=== PATIENT | female | born 1945 | race Caucasian/White ===

== ENCOUNTER 2019-09-13 10:19 | Day surgery (SDC) | payer MEDICARE, BC ==
[2019-09-09 16:07] LABS: BASOPHILS % (AUTO) 0.5 % (0-1); EOSINOPHILS # (AUTO) 0.2 X10'3 (0-0.9); EOSINOPHILS % (AUTO) 3.6 % (0-6); HEMATOCRIT 39.5 % (35.0-45.0); HEMOGLOBIN 13.4 g/dl (12.0-16.0); LYMPHOCYTES # (AUTO) 2.3 X10'3 (1.1-4.8); LYMPHOCYTES % (AUTO) 37.3 % (21-51); MEAN CORPUSCULAR HEMOGLOBIN 32.1 PG (27.0-31.0); MEAN CORPUSCULAR VOLUME 94.3 FL (78-98); MEAN PLATELET VOLUME 8.2 FL (7.4-10.4); MONOCYTES # (AUTO) 0.5 X10'3 (0-0.9); MONOCYTES % (AUTO) 8.7 % (2-12); NEUTROPHILS # (AUTO) 3.1 X10'3 (1.8-7.7); NEUTROPHILS % (AUTO) 49.9 % (42-75); PLATELET COUNT 208 X10'3 (140-440); RED BLOOD COUNT 4.19 X10'6 (4.20-5.60); RED CELL DISTRIBUTION WIDTH 13.5 % (11.5-14.5); WHITE BLOOD COUNT 6.2 X10'3 (4.5-11.0)
[2019-09-09 16:17] LABS: PARTIAL THROMBOPLASTIN TIME 26 SECONDS (22-32)
[2019-09-09 16:19] LABS: ALANINE AMINOTRANSFERASE 85 U/L (12-78); ALBUMIN/GLOBULIN RATIO 1.2 (1.1-1.5); ALKALINE PHOSPHATASE 68 IU/L (46-116); ANION GAP 5 (8-16); ASPARTATE AMINO TRANSFERASE 33 U/L (10-37); BILIRUBIN,TOTAL 0.6 MG/DL (0.1-1.0); BLOOD UREA NITROGEN 15 MG/DL (7-18); BUN/CREATININE RATIO 16.9 (6.6-38.0); CALCIUM 9.1 MG/DL (8.5-10.1); CHLORIDE 106 MMOL/L (99-107); CREATININE 0.89 MG/DL (0.40-0.90); GLUCOSE 98 MG/DL (70-104); POTASSIUM 3.8 MMOL/L (3.5-5.1); SODIUM 142 MMOL/L (135-145); TOTAL CARBON DIOXIDE 31.4 MMOL/L (24-32); TOTAL PROTEIN 7.4 G/DL (6.4-8.2); eGFR 62 ML/MIN
[2019-09-13] VITALS (13 sets, daily range): BP systolic 101–128; BP diastolic 60–80
[~2019-09-13] VITALS: Ht 165.1 cm; Wt 68.2 kg
[2019-09-13] MEDS ORDERED: nitroGLYCERIN 0.4mg SUBLingual tab SL PRN (10:45)
[2019-09-13] MEDS ORDERED: LORazepam 0.5 MG tablet PO PRN (10:45)
[2019-09-13] MEDS ORDERED: diphenhydrAMINE 25mg capsule PO PRN (10:45)
[2019-09-13] MEDS ORDERED: normal saline 1,000 ML IV SCH (10:45)
[2019-09-13] MEDS ORDERED: OMEP40CA13 PO (11:17)
[2019-09-13] MEDS ORDERED: HYDR12.55 PO (11:17)
[2019-09-13] MEDS ORDERED: OXYB5TAB16 PO (11:17)
[2019-09-13] MEDS ORDERED: ASPI-611 PO (11:17)
[2019-09-13] MEDS ORDERED: BENA20TA82 PO (11:17)
[2019-09-13] MEDS ORDERED: ATOR40TA PO (11:17)
[2019-09-13] MEDS ORDERED: CHOL200041 PO (11:17)
[2019-09-13] MEDS ORDERED: Chondroitin PO (11:17)
[2019-09-13] MEDS ORDERED: GLUC100017 PO (11:17)
[2019-09-13] MEDS ORDERED: ESCI10TA54 PO (11:17)
[2019-09-13] MEDS ORDERED: LIDOcaine 1% (10mg/ml)w/preservative injection 20ml MDV ONE (12:00)
[2019-09-13] MEDS ORDERED: midazolam 2 mg/2 ml injection ONE (12:00)
[2019-09-13] MEDS ORDERED: iohexol 350 MG/ML 50ML vial IV ONE (12:00)
[2019-09-13] MEDS ORDERED: iohexol 350MG/ML 100ml bottle IV ONE (12:00)
[2019-09-13] MEDS ORDERED: fentaNYL/PF 50MCG/1 ML 2ML syringe ONE (12:00)
[2019-09-13] MEDS ORDERED: ondansetron/PF 4mg/2ml inj IV PRN (14:05)
[2019-09-13] MEDS ORDERED: HYDROcodone/acetaminophen 10/325mg tab PO PRN (14:05)
[2019-09-13] MEDS ORDERED: proCHLORperazine 10 MG/2 ml inj IV PRN (14:05)
[2019-09-13] MEDS ORDERED: OXAZEpam 15mg capsule PO PRN (14:05)
[2019-09-13] MEDS ORDERED: HYDROcodone/acetaminophen 5mg/325mg tablet PO PRN (14:05)
[2019-09-13] MEDS ORDERED: normal saline 1000ml 1,000 ML IV SCH (14:10)
== END 2019-09-13 19:00 | disposition home or self-care (01) ==
LOC: SSTAY O 10:19
PROVIDERS: ATTEND Internal Medicine Cardiovascular Disease
DX: R94.39 Abnormal result of other cardiovascular function study (principal); I10 Essential (primary) hypertension; I25.10 Atherosclerotic heart disease of native coronary artery without angina pectoris; E78.5 Hyperlipidemia, unspecified; F32.9 Major depressive disorder, single episode, unspecified; M19.90 Unspecified osteoarthritis, unspecified site; J44.9 Chronic obstructive pulmonary disease, unspecified; K21.9 Gastro-esophageal reflux disease without esophagitis; Z87.891 Personal history of nicotine dependence; Z79.01 Long term (current) use of anticoagulants; Z82.49 Family history of ischemic heart disease and other diseases of the circulatory system
CPT/HCPCS: 36415; 71046; 80053; 85025; 85610; 85730; 93458; 99152; C1760; C1769; J1644; J2001; J2250; J3010; J7030; Q0163; Q9967; A4620; A6258

== ENCOUNTER 2024-09-19 07:52 | Day surgery (SDC) | payer MEDICARE, BC ==
[~2024-09-19] VITALS: Ht 162.6 cm; Wt 68.2 kg
[2024-09-19] VITALS (9 sets, daily range): BP systolic 114–162; BP diastolic 62–85; PULSE 61–69; RESP 10–16; O2SAT 90–96
[~2024-09-19 07:52] MED LIST: ASPI-611 PO; ATOR40TA PO; BENA20TA82 PO; CHOL200041 PO; Chondroitin PO; ESCI-8 PO; GINK120C3 PO; GLUC100017 PO; HYDR12.55 PO; OMEP40CA21 PO; OXYB5TAB21 PO
[2024-09-19] MEDS ORDERED: simethicone 40mg/0.6ml oral drops 30ml ONE (10:25)
[2024-09-19] MEDS ORDERED: LIDOcaine 2% Viscous 15ml cup ONE (10:28)
[2024-09-19] MEDS ORDERED: fentaNYL/PF 50MCG/1 ML 2ML syringe ONE (10:32)
[2024-09-19] MEDS ORDERED: diphenhydrAMINE 50 mg/ml inj ONE (10:32)
[2024-09-19] MEDS ORDERED: MIDAZolam 1 MG/ML 5ML VIAL ONE (10:32)
== END 2024-09-19 11:27 | disposition home or self-care (01) ==
LOC: GI LAB 07:52
PROVIDERS: ATTEND Internal Medicine Gastroenterology
DX: R13.10 Dysphagia, unspecified (principal); K29.50 Unspecified chronic gastritis without bleeding; K21.00 Gastro-esophageal reflux disease with esophagitis, without bleeding; K31.89 Other diseases of stomach and duodenum
CPT/HCPCS: 43239; A4620; J2250; J3010; J7030; Z7512; 99152; J1200